=== PATIENT | female | born 1995 | race Caucasian/White ===

== ENCOUNTER → 2020-08-12 | Outpatient (CLI) | payer OTHER ==
--- NOTE | 2020-08-12 14:12 | RAD ---
Pelvic ultrasound INDICATION: Right lower quadrant pain and pelvic pain. LMP 07/21/2020. G0. TECHNIQUE: Grayscale, color and spectral Doppler imaging was performed of the pelvis transabdominally . FINDINGS: The uterus measures 7.2 x 4.6 x 3.6 cm. The endometrium measures 4 mm. The right ovary measures 2.5 x 2.1 x 1.5 cm and demonstrates normal blood flow. The left ovary measures 2.5 x 2.6 x 1.4 cm and demonstrates normal blood flow. The cervix and urinary bladder are unremarkable. No pelvic free fluid. IMPRESSION: Normal transabdominal pelvic ultrasound. Electronically signed by: Neil Rosales MD (08/12/2020 2:09 PM) [id number]
== END ==
LOC: US 08:43
PROVIDERS: ATTEND Physician Assistant Medical
DX: R10.2 Pelvic and perineal pain (principal); R10.31 Right lower quadrant pain
CPT/HCPCS: 76856